=== PATIENT | male | born 1955 | race Caucasian/White ===

== ENCOUNTER 2024-12-01 13:57 | Emergency (ER) | payer MEDICARE, MEDICAID, SELFPAY ==
--- NOTE | 2024-12-01 14:15 | ED_ITS ---
HPI - General Adult General Chief complaint: ETOH/Substance Use Stated complaint: AMS, ETOH Time Seen by Provider: 12/01/24 14:10 Source: patient and EMS Mode of arrival: EMS Limitations: altered mental status History of Present Illness ED Provider: Kirsten Lorenzo APRN HPI narrative: This is a gentlemen who was found sleeping on the sidewalk by a bystander. EMS was called and the patient was transported to the ER for further evaluation. Patient tells his name is Sheldon and he lives in a house in [place] but he does not know his last name or address. He states I drank alot of alcohol. Denies substance use. Has no physical complaints. He denies medical history, daily medications. Related Data Allergies Allergy/AdvReac Type Severity Reaction Status Date / Time Unable to Assess Allergy Unverified 12/01/24 14:26 Review of Systems 2 Review of Systems: Yes Unobtainable due to mental status PMFSH Past Medical History Source: unable to obtain Social History Social History Unable to assess alcohol history related to: Unable to respond Use of substances other than those prescribed or required for medical reasons: Unable to respond Advance Directives: No Advance Directives Information Provided: No Physical Exam ED Vital Signs: Vital Signs - 24 hr 12/01/24 14:22 12/01/24 20:37 Temperature 97.8 F 97.9 F Pulse Rate 97 89 Respiratory Rate 18 16 Blood Pressure 116/81 138/82 Pulse Oximetry 96 99 Oxygen Delivery Method Room Air Room Air BMI result Body Mass Index 26.6 Const General: alert Orientation/consciousness: oriented to person Limitations: altered mental status HENMT Head: Yes normal to inspection, No Amos's sign and No raccoon eyes Ears: TM's normal bilaterally General nose exam: Normal external nose present Face and sinus: Yes normal facial exam Mouth: Normal oral and palatal mucosa present Teeth and gingiva: dentition normal Throat: Yes posterior oropharynx normal Eyes General: appearance normal, both eyes and all related structures Pupils: Equal, round and reactive pupils present Neck Other: No cervical midline tenderness, step offs or deformities Neck: Yes normal visual inspection and Yes full ROM Chest Chest palpation & inspection: normal inspection of the chest Resp Effort & Inspection: normal respiratory effort Auscultation: clear to auscultation bilaterally Cardio Rate: regular rate Rhythm: regular rhythm Peripheral pulses: Peripheral pulses 2+ throughout GI Inspection: Yes normal to inspection Palpation (GI): Soft to palpation and nontender General: Yes no CVA tenderness Back/Spine/Pelvis Back: no CVA tenderness Thoracic/Lumbar Spine: thoracic and lumbar spine normal to inspection Skin General skin exam: no rashes or lesions noted Neuro General: oriented to person, moves all extremities and Unable to assess gait Cranial nerves: Yes Equal, round and reactive pupils present, Yes Normal facial strength present and Yes Midline tongue present Gait exam (Neuro): Unable to assess gait Motor exam (neuro): 5/5 motor strength present throughout Sensory Exam: Normal double simultaneous stimulation for sensation Extrem General: Yes normal to inspection, Yes no calf tenderness and Yes normal gait Course Course Course Narrative: 12/01 1800 Sign out to Fransisca HALL pending sober re-eval and disposition. Reevaluation(s) Reevaluation #1: Danyelle Rehman PA-C have accepted care of the patient and signed out pending sober re-evaluation Reevaluation #2: The patient is now up, clinically sober, ambulating to the bathroom with a ease, he does not have a ride at this time, we will discharge him as 6:00 a.m.. He is requesting a nicotine patch Time: 02:26 Medical Decision Making Medical Decision Making MDM Narrative: This is a gentlemen who was found sleeping on the sidewalk by a bystander. EMS was called and the patient was transported to the ER for further evaluation. Patient tells his name is Sheldon and he lives in a house in [place] but he does not know his last name or address. He states I drank alot of alcohol. Denies substance use. Has no physical complaints. He denies medical history, daily medications. NO concern for trauma based on physical exam. Patient admits to drinking alcohol. Doubt additional ingestion. VSS Will obtain labs, PATEL and monitor in the emergency department Differential Diagnosis Differential Diagnoses: The differential diagnosis associated with the presentation includes alcohol use disorder Admission/Observation Consideration of admission/observation: Escalation of care including admission/observation considered Lab Data [facility] Lab Attestation statement: I reviewed the patient's lab results. 12/01/24 14:39 12/01/24 14:39 Labs: Lab Results 12/01/24 Range/Units 14:39 WBC 5.1 (4.8-10.8) X10*3/uL RBC 4.17 L (4.60-5.80) X10*6/uL Hgb 14.4 (14.0-18.0) g/dl Hct 41.3 L (42.0-52.0) % MCV 99.0 H (80.0-98.0) fL MCH 34.5 H (27.0-33.0) pg MCHC 34.9 (31.0-36.0) g/dl RDW 15.9 (11.0-16.0) % Plt Count 155 L (160-400) X10*3/uL MPV 8.7 L (9.4-12.4) fL Immature Gran % (Auto) 0.4 (0.0-0.4) % Neut % (Auto) 25.9 L (45-73) % Lymph % (Auto) 58.2 H (20-40) % Churchill % (Auto) 13.1 H (2-11) % Eos % (Auto) 1.6 (0-4) % Baso % (Auto) 0.8 (0-2) % Lymph # (Auto) 3.0 (1.2-4.9) X10*3/uL Churchill # (Auto) 0.7 (0.1-1.2) X10*3/uL Eos # (Auto) 0.1 (0.0-0.4) X10*3/uL Baso # (Auto) 0.0 (0.0-0.2) X10*3/uL Abs Immat Gran (auto) 0.02 (0.00-0.03) X10*3/uL Absolute Neuts (auto) 1.3 L (2.0-8.3) x10*3/uL Absolute Nucleated RBC 0.000 (0.0-0.012) X10*3/uL Nucleated RBC % (auto) 0.0 (0.0-0.2) /100WBC Sodium 149 H (135-145) mmol/L Potassium 3.4 (3.3-5.1) mmol/L Chloride 113 H (96-108) mmol/L Carbon Dioxide 22 (22-29) mmol/L Anion Gap 17 (12-20) BUN 8 L (9-16) mg/dL Creatinine 0.77 (0.5-1.4) mg/dL Estim Creat Clear Calc 122.2 Estimated GFR > 60 Random Glucose 96 (60-115) mg/dL Calcium 8.5 (8.4-10.2) mg/dL Total Bilirubin 0.2 (0.0-1.0) mg/dL Direct Bilirubin < 0.2 (0.0-0.5) mg/dL AST 20 (5-37) U/L ALT 10 (0-40) U/L Alkaline Phosphatase 54 (39-117) U/L Total Protein 6.7 (6.5-8.0) g/dL Albumin 4.1 (3.5-5.0) g/dL Ethyl Alcohol 410 H* mg/dL Independent Historian Clinical information obtained from an independent historian. History obtained from or confirmed by: EMS Discharge Plan Discharge Clinical Impression: Alcoholic intoxication Patient Disposition: Home, Self-Care Instructions: Alcohol Intoxication (ED) Additional Instructions: You were monitored overnight in the emergency department for your safety, you were found to be intoxicated with a significantly elevated blood alcohol level. Print Language: Setswana
[2024-12-01 14:22] VITALS: BP 116/81; PULSE 96; PULSE 97; RESP 18; TEMP 36.6; O2SAT 96; BMI 26.6
--- NOTE | 2024-12-01 14:31 | PC.NURSE ---
Pt BIBA after reports of being found intoxicated laying on sidewalk. Pt unable to recall name, attempting to get out of bed. Conitues to try to sit up, stated I'm drunk . Pt allowed to rest.
[2024-12-01 14:53] LABS: MANUAL DIFF FLAG NO
[2024-12-01 14:55] LABS: Hematocrit 41.3 % (42.0-52.0); Hemoglobin 14.4 g/dl (14.0-18.0); Imm Gran Abs Auto 0.02 X10*3/uL (0.00-0.03); Imm Gran Pct Auto 0.4 % (0.0-0.4); Lymphocytes Absolute Auto 3.0 X10*3/uL (1.2-4.9); Mean Corpuscular HGB Conc 34.9 g/dl (31.0-36.0); Mean Corpuscular Hemoglobin 34.5 pg (27.0-33.0); Mean Corpuscular Volume 99.0 fL (80.0-98.0); NRBC Abs Auto 0.000 X10*3/uL (0.0-0.012); NRBC Pct Auto 0.0 /100WBC (0.0-0.2); Platelet Count 155 X10*3/uL (160-400); Red Blood Count 4.17 X10*6/uL (4.60-5.80); White Blood Count 5.1 X10*3/uL (4.8-10.8)
[2024-12-01 15:11] LABS: Alanine Aminotransferase 10 U/L (0-40); Albumin Level 4.1 g/dL (3.5-5.0); Alkaline Phosphatase 54 U/L (39-117); Anion Gap 17 (12-20); Aspartate Amino Transferase 20 U/L (5-37); Blood Urea Nitrogen 8 mg/dL (9-16); Calcium 8.5 mg/dL (8.4-10.2); Carbon Dioxide 22 mmol/L (22-29); Chloride 113 mmol/L (96-108); Creatinine Clr Calc Pharmacy 122.2; Estimated Glomerular Filt Rate > 60; Potassium 3.4 mmol/L (3.3-5.1); Sodium 149 mmol/L (135-145); Total Protein 6.7 g/dL (6.5-8.0)
--- NOTE | 2024-12-01 15:46 | PC.NURSE ---
Pt moved to [address] [place] [address], 1:1 sitter at bedside. Pt resting in stretcher, easily redirectable on awakening.
--- OUTSIDE RECORDS SUMMARY | 2024-12-01 15:51 | XMS_ITS | Clinical Summary ---
Author Organization [facility] Facility Address [address] [address] Care Team Providers Care Merchandising Professor Name Role Phone Unavailable Primary Care Provider Unavailabl e Social History Tobacco Use Types Packs/Day Years Used Date Smoking Tobacco: Never Assessed Sex and Gender Information Value Date Recorded Sex Assigned at Not on file Legal Sex Male 8:58 AM EDT Gender Identity Not on file Sexual Orientation Not on file Plan of Treatment Health Maintenance Due Date Last Done Comments Colorectal Cancer Screening: Annual FOBT 2006 Colorectal Cancer Screening: Colonoscopy 2006 Colorectal Cancer Screening: Sigmoidoscopy 2006 Pneumococcal Vaccine: 50+ Ye ars (1 of 1 - PCV) 09/13/2007 Influenza Vaccine (#1) 2025 Hepatitis B Vaccine Aged Out No longe r eligible based on patient's age to complete this topic Insurance [place]
--- OUTSIDE RECORDS SUMMARY | 2024-12-01 15:51 | XMS_ITS | Clinical Summary ---
Author Organization [facility] Address [address] [place] [phone] Phone Care Team Providers Care Sciences Dean Name Role Phone Pcp, Unknown Primary Care Provider Unavailabl e Allergies No known active allergies Medications No known medications Active Problems Problem Noted Date Diagnosed Date ETOH abuse 10/08/2023 Social History Tobacco Use Types Packs/Day Years Used Date Smoking Tobacco: Never Assessed Education Answer Date Recorded Are you interested in more education? Not on zachariah e 10/06/2023 Are you concerned about learning? Not on file 10/06/2023 No 10/06/2023 No 10/06/2023 Digital Access Answer Date Recorded No 10/06/2023 No 10/06/2023 Reliable internet access at home? Not on file 10/06/2023 Device with a working camera? Not on file Intimate Partner Violence Answer Date R ecorded Are you denied basic needs s uch as food, clothing, or medical care? No 02/10/2024 In the past 12 months have y ou been in a relationship with a person who hurts, threatens, or tries to control you? No 02/10/2024 Are you denied basic needs s uch as food, clothing, or medical care? No 02/10/2024 In the past 12 months have y ou been in a relationship with a person who hurts, threatens, or tries to control you? No 02/10/2024 Sex and Gender Information Value Date Recorded Sex Assigned at Male 02/10/2024 3:40 PM EDT Legal Sex Male 9:51 PM EDT Gender Identity Male 02/10/2024 3:40 PM EDT Sexual Orientation Not on file Last Filed Vital Signs Vital Sign Reading Time Taken Comments Blood Pressure 141/91 02/10/2024 9:15 PM EDT Pulse 93 02/10/2024 9:15 PM EDT Temperature 36.5 C (97.7 F) 02/10/2024 9:15 PM EDT Respiratory Rate 16 02/10/2024 9:15 PM EDT Oxygen Saturation 98% 02/10/2024 9:15 PM EDT Inhaled Oxygen Concentration - - Weight 78.9 kg (173 lb 15.1 oz) 02/10/2024 7:18 PM EDT Height 160 cm (5' 3 ) 02/10/2024 7:18 PM EDT Body Mass Index 30.81 02/10/2024 7:18 PM EDT Plan of Treatment Health Maintenance Due Date Last Done Comments Adult Td,Tdap Booster 1957 LIPID PANEL 1957 DEPRESSION SCREENING 1969 SMOKING Hx and SMOKELESS TOB ACCO SCREENING 1970 HEPATITIS C SCREENING 09/13/1975 COLOGUARD 2002 COLONOSCOPY 2002 COLORECTAL CANCER SCREENING 2002 FIT TEST 2002 FOBT 2002 SIGMOIDOSCOPY 2002 VIRTUAL COLONOSCOPY 2002 PNEUMOCOCCAL VACCINES (50+ y ears) (1 of 1 - PCV) 09/13/2007 ZOSTER VACCINES (1 of 2) 09/13/2007 COVID-19 VACCINE (1 - 2023-2 5 season) 2024 SCREENING FOR DIABETES 10/05/2026 10/06/2023 RSV VACCINE (1 - 1-dose 75+ series) 2032 HEPATITIS A VACCINES Aged Out No long er eligible based on patient's age to complete this topic HIB VACCINES Aged Out No longer eligi ble based on patient's age to complete this topic MENINGOCOCCAL VACCINES (ACWY) Aged Out No longer eligible based on patient's age to complete this topic MENINGOCOCCAL VACCINES (B) Aged Out N o longer eligible based on patient's age to complete this topic Medical Devices Not on file [facility] B [place] [facility] [place] B Care Teams Sciences Dean Relationship Specialty Start Date End Date Pcp, Unknown PCP - General 10/06/23 Additional Source Comments The information contained in this document represents components of the legal health record. It is not the complete legal health record.[facility]
[2024-12-01 20:37] VITALS: BP 138/82; PULSE 89; RESP 16; TEMP 36.6; O2SAT 99
[2024-12-02 02:30] LABS: Cannabinoid Screen Urine Not Detected (Not Detect)
[2024-12-02] MEDS: Nicotine 21 MG PATCH.TD24 TRANSDERMA (02:37)
[2024-12-02 06:08] VITALS: BP 138/82; PULSE 89; RESP 16; TEMP 36.6; O2SAT 99
== END 2024-12-02 06:08 | disposition home or self-care (01) ==
PROVIDERS: Nurse Practitioner Family; Emergency Provider Emergency Medicine
DX: F10.129 Alcohol abuse with intoxication, unspecified (principal); Y90.8 Blood alcohol level of 240 mg/100 ml or more; Z51.81 Encounter for therapeutic drug level monitoring; Z79.899 Other long term (current) drug therapy
CPT/HCPCS: 36415; 80048; 80076; 80307; 85025; 99284

== ENCOUNTER 2025-02-21 05:35 | Outpatient (REF) | payer MEDICARE, SELFPAY ==
[2025-02-21 05:37] LABS: MANUAL DIFF FLAG NO
--- OUTSIDE RECORDS SUMMARY | 2025-02-21 05:39 | XMS_ITS | Clinical Summary ---
Author Organization [facility] Address [address] [place] [id number] Phone Care Team Providers Care Tank Washer Name Role Phone Pcp, Unknown Primary Care [...] 09/13/2007 ZOSTER VACCINES (1 of 2) 09/13/2007 INFLUENZA VACCINE (#1) 2024 COVID-19 VACCINE ( - 2024-2 6 season) 2025 SCREENING FOR DIABETES 10/05/2026 10/06/2023 RSV VACCINE [...] topic Medical Devices Not on file Insurance [place] [facility] [place] [id number] Care Teams Tank Washer Relationship Specialty Start Date End Date Pcp, Unknown PCP - General 10/06/23 Additional Source Comments The information contained in this document represents components of the legal health record. It is not the complete legal health record.[facility]
--- OUTSIDE RECORDS SUMMARY | 2025-02-21 05:39 | XMS_ITS | Clinical Summary ---
Author Organization [facility] Facility Address [address] [address] Care Team Providers Care Production Aide Name Role Phone Unavailable Primary Care Provider [...] age to complete this topic Insurance Medicaid [place]
[2025-02-21 06:08] LABS: Hematocrit 35.7 % (42.0-52.0); Hemoglobin 11.5 g/dl (14.0-18.0); Imm Gran Abs Auto 0.02 X10*3/uL (0.00-0.03); Imm Gran Pct Auto 0.3 % (0.0-0.4); Lymphocytes Absolute Auto 2.8 X10*3/uL (1.2-4.9); Mean Corpuscular HGB Conc 32.2 g/dl (31.0-36.0); Mean Corpuscular Hemoglobin 32.2 pg (27.0-33.0); Mean Corpuscular Volume 100.0 fL (80.0-98.0); NRBC Abs Auto 0.000 X10*3/uL (0.0-0.012); NRBC Pct Auto 0.0 /100WBC (0.0-0.2); Platelet Count 217 X10*3/uL (160-400); Red Blood Count 3.57 X10*6/uL (4.60-5.80); White Blood Count 7.7 X10*3/uL (4.8-10.8)
[2025-02-21 06:22] LABS: Alanine Aminotransferase 9 U/L (0-40); Albumin Level 3.3 g/dL (3.5-5.0); Alkaline Phosphatase 133 U/L (39-117); Anion Gap 13 (12-20); Aspartate Amino Transferase 17 U/L (5-37); Blood Urea Nitrogen 11 mg/dL (9-16); Calcium 8.6 mg/dL (8.4-10.2); Carbon Dioxide 24 mmol/L (22-29); Chloride 110 mmol/L (96-108); Estimated Glomerular Filt Rate > 60; Magnesium 1.6 mg/dL (1.6-2.6); Potassium 3.6 mmol/L (3.3-5.1); Sodium 143 mmol/L (135-145); Total Protein 5.9 g/dL (6.5-8.0)
== END 2025-02-21 05:36 | disposition home or self-care (01) ==
LOC: HO.MMNH2L 05:35
PROVIDERS: Visit Provider Physician Assistant Medical
DX: I10 Essential (primary) hypertension (principal); F10.10 Alcohol abuse, uncomplicated; Z13.1 Encounter for screening for diabetes mellitus
CPT/HCPCS: 36415; 80053; 83036; 83735; 85025

== ENCOUNTER 2025-02-24 05:44 | Outpatient (REF) | payer MEDICARE, SELFPAY ==
[2025-02-24 05:41] LABS: MANUAL DIFF FLAG NO
--- OUTSIDE RECORDS SUMMARY | 2025-02-24 05:49 | XMS_ITS | Clinical Summary ---
Author Organization [facility] Facility Address [address] [address] Care Team Providers Care Pharmacy Innovation Assistant Name Role Phone Unavailable Primary Care Provider [...] age to complete this topic Insurance Medicaid [place]
--- OUTSIDE RECORDS SUMMARY | 2025-02-24 05:49 | XMS_ITS | Clinical Summary ---
Author Organization [facility] Address [address] [place] [id number] Phone Care Team Providers Care Advertising Associate Name Role Phone Pcp, Unknown Primary Care [...] Insurance [place] & B [facility] PART A & [place] [id number] Care Teams Advertising Associate Relationship Specialty Start Date End Date Pcp, Unknown PCP - General 10/06/23 Additional Source Comments The information contained in this document represents components of the legal health record. It is not the complete legal health record.[facility]
[2025-02-24 07:01] LABS: Hematocrit 38.4 % (42.0-52.0); Hemoglobin 12.2 g/dl (14.0-18.0); Imm Gran Abs Auto 0.01 X10*3/uL (0.00-0.03); Imm Gran Pct Auto 0.1 % (0.0-0.4); Lymphocytes Absolute Auto 2.9 X10*3/uL (1.2-4.9); Mean Corpuscular HGB Conc 31.8 g/dl (31.0-36.0); Mean Corpuscular Hemoglobin 31.9 pg (27.0-33.0); Mean Corpuscular Volume 100.5 fL (80.0-98.0); NRBC Abs Auto 0.000 X10*3/uL (0.0-0.012); NRBC Pct Auto 0.0 /100WBC (0.0-0.2); Platelet Count 178 X10*3/uL (160-400); Red Blood Count 3.82 X10*6/uL (4.60-5.80); White Blood Count 7.3 X10*3/uL (4.8-10.8)
[2025-02-24 07:16] LABS: Anion Gap 15 (12-20); Blood Urea Nitrogen 14 mg/dL (9-16); Calcium 8.9 mg/dL (8.4-10.2); Carbon Dioxide 18 mmol/L (22-29); Chloride 109 mmol/L (96-108); Estimated Glomerular Filt Rate > 60; Potassium 3.8 mmol/L (3.3-5.1); Sodium 138 mmol/L (135-145)
== END 2025-02-24 05:45 | disposition home or self-care (01) ==
LOC: HO.MMNH2L 05:44
PROVIDERS: Visit Provider Physician Assistant Medical
DX: I10 Essential (primary) hypertension (principal); F10.10 Alcohol abuse, uncomplicated
CPT/HCPCS: 36415; 80048; 85025